=== PATIENT | male | born 2000 | race Caucasian/White ===

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

== ENCOUNTER → 2019-05-11 | Outpatient (CLI) | payer OTHER, BC ==
[~2019-05-11] MED LIST changes: -TRAZ-189 PO; +TRAZ-222 PO
[2019-05-11 15:58] LABS: BASOPHILS % (AUTO) 0 % (0-10); EOSINOPHILS # (AUTO) 0.2 10^3/uL (0.0-0.3); EOSINOPHILS % (AUTO) 2 % (0-10); HEMATOCRIT 47 % (40-54); HEMOGLOBIN 16.1 G/DL (13.3-17.7); LYMPHOCYTES # (AUTO) 2.1 X 10^3 (1.0-4.0); LYMPHOCYTES % (AUTO) 22 % (12-44); MEAN CORPUSCULAR HEMOGLOBIN 29 PG (25-34); MEAN CORPUSCULAR HGB CONC 34 G/DL (32-36); MEAN CORPUSCULAR VOLUME 85 FL (80-99); MEAN PLATELET VOLUME 11.1 FL (7.4-10.4); MONOCYTES # (AUTO) 0.7 X 10^3 (0.0-1.0); MONOCYTES % (AUTO) 8 % (0-12); NEUTROPHILS # (AUTO) 6.6 X 10^3 (1.8-7.8); NEUTROPHILS % (AUTO) 69 % (42-75); PLATELET COUNT 221 10^3/uL (130-400); RED CELL DISTRIBUTION WIDTH 12.9 % (10.0-14.5); WHITE BLOOD COUNT 9.7 10^3/uL (4.3-11.0)
[2019-05-11 16:20] LABS: URIC ACID 8.6 MG/DL (2.6-7.2)
[2019-05-11 16:37] LABS: ERYTHROCYTE SEDIMENTATION RATE 1 MM/HR (0-15)
[2019-05-11 16:40] LABS: FREE T4 (FREE THYROXINE) 0.89 NG/DL (0.70-1.48)
== END ==
LOC: LAB 15:38
PROVIDERS: ATTEND Family Medicine
DX: E53.8 Deficiency of other specified B group vitamins (principal); E55.9 Vitamin D deficiency, unspecified; M25.50 Pain in unspecified joint; R53.83 Other fatigue; R63.5 Abnormal weight gain
CPT/HCPCS: 36415; 82306; 82607; 84439; 84443; 84550; 85025; 85652

== ENCOUNTER 2019-06-24 19:09 | Emergency (ER) | payer OTHER, BC, MEDICAID ==
[~2019-06-24] VITALS: Ht 182 cm; Wt 131.9 kg
--- NOTE | 2019-06-24 19:39 | ED Psychosocial ---
General Chief Complaint: Suicidal Ideation Risk Stated Complaint: SUICIDAL THOUGHTS Nursing Triage Note: PATIENT WITH HISTORY OF SUICIDE ATTEMPTS HERE FOR CONTINUED SUICIDIAL IDEATION. TODAY HE STATES HE HAD A KNIFE TO HIS ABDOMEN. Source: patient Exam Limitations: no limitations History of Present Illness Date Seen by Provider: Jun 24, 2019 Time Seen by Provider: 19:37 Initial Comments To ER with reports of suicidal thoughts. Earlier today he held a knife against his abdomen but didn't actually injure himself. States that he's been feeling increasingly suicidal over the past few weeks. He lost a close friend to suicide about 3 years ago, he cannot identify any other factors that have made him more suicidal. He has never been inpatient hospitalized for mental health before feels as though he is to a point where he needs to be inpatient to get his medications adjusted. He arrives accompanied by his mother who is employed here as a nurse's aide and his father. Timing/Duration: constant Severity: moderate Associated Symptoms: suicidal ideation Allergies and Home Medications Allergies Uncoded Allergies: MODESTODADemi (Adverse Reaction, Severe, Behavioral out burst, 05/30/16) Home Medications Asenapine Maleate 10 Mg Tab.subl, 20 MG SL HS, (Reported) Cyclobenzaprine HCl 10 Mg Tablet, 10 MG PO Q8H PRN for SPASMS Prescribed by: ALEJANDRO BARBER on 10/22/162141 Dexmethylphenidate HCl 30 Mg Cpbp.50.50, 60 MG PO DAILY, (Reported) Hydrocodone Bit/Acetaminophen 1 Each Tablet, 1 EACH PO Q4H PRN for PAIN Prescribed by: ALEJANDRO BARBER on 10/22/162141 Sertraline HCl 50 Mg Tablet, 50 MG PO DAILY, (Reported) Trazodone HCl 50 Mg Tablet, 25 MG PO HS, (Reported) Patient Home Medication List Home Medication List Reviewed: Yes Review of Systems Constitutional: see HPI EENTM: see HPI Respiratory: no symptoms reported Cardiovascular: no symptoms reported Genitourinary: no symptoms reported Musculoskeletal: no symptoms reported Skin: no symptoms reported Psychiatric/Neurological: See HPI, Depressed, Emotional Problems Past Ppxyywk-Lgehxu-Cpvoyh Hx Patient Social History Alcohol Use: Denies Use Recreational Drug Use: No Smoking Status: Never a Smoker 2nd Hand Smoke Exposure: No Recent Foreign Travel: No Contact w/Someone Who Travel: No Recent Infectious Disease Expo: No Recent Hopitalizations: No Ebola Symptoms: Denies Symptoms Listed Immunizations Up To Date Tetanus Booster (TDap): Less than 5yrs PED Vaccines UTD: Yes Seasonal Allergies Seasonal Allergies: No Past Medical History Surgeries: Yes (T&A) Adenoidectomy, Tonsillectomy Respiratory: No Cardiac: Yes Hypertension Neurological: No Reproductive Disorders: No Genitourinary: No Gastrointestinal: No Musculoskeletal: Yes Arthritis, Gout Endocrine: No Cancer: No Psychosocial: Yes ([place]bergers) ADD/ADHD, Bipolar, Depression Integumentary: No Blood Disorders: No Family Medical History No Pertinent Family Hx Physical Exam Vital Signs - First Documented 06/24/19 06/25/19 19:26 00:06 Temp 36.1 Pulse 98 Resp 18 B/P (MAP) 125/82 Pulse Ox 96 O2 Delivery Room Air Capillary Refill : Height, Weight, BMI Height: 6'0" Weight: 220lbs. 0oz. 99.274099wl; 39.00 BMI Method:Stated General Appearance: WD/WN, no apparent distress HEENT: PERRL/EOMI, normal ENT inspection, pharyngeal erythema (minor, no exudate) Neck: non-tender, full range of motion, lymphadenopathy (L) Respiratory: no respiratory distress, no accessory muscle use Cardiovascular: regular rate, rhythm, no murmur Gastrointestinal: normal bowel sounds, non tender Extremities: normal range of motion, non-tender, normal inspection Neurologic/Psychiatric: alert, normal mood/affect, oriented x 3 Appearance/Memory: appropriate appearance, appropriate insight, neat, other (alert and oriented cooperative and pleasant) Behavior/Eye Contact: cooperative, good eye contact, normal speech Thoughts/Hallucinations: normal thought pattern, no apparent hallucination Skin: normal color, warm/dry Progress/Results/Core Measures Results/Orders Lab Results Laboratory Tests Test 06/24/19 19:40 06/24/19 19:43 06/24/19 20:33 Range/Units White Blood Count 21.1 H 4.3-11.0 10^3/uL Red Blood Count 5.32 4.35-5.85 10^6/uL Hemoglobin 15.7 13.3-17.7 G/DL Hematocrit 46 40-54 % Mean Corpuscular Volume 86 80-99 FL Mean Corpuscular Hemoglobin 30 25-34 PG Mean Corpuscular Hemoglobin Concent 34 32-36 G/DL Red Cell Distribution Width 12.7 10.0-14.5 % Platelet Count 220 130-400 10^3/uL Mean Platelet Volume 10.9 H 7.4-10.4 FL Neutrophils (%) (Auto) 80 H 42-75 % Lymphocytes (%) (Auto) 11 L 12-44 % Monocytes (%) (Auto) 9 0-12 % Eosinophils (%) (Auto) 0 0-10 % Basophils (%) (Auto) 0 0-10 % Neutrophils # (Auto) 16.9 H 1.8-7.8 X 10^3 Lymphocytes # (Auto) 2.3 1.0-4.0 X 10^3 Monocytes # (Auto) 1.9 H 0.0-1.0 X 10^3 Eosinophils # (Auto) 0.0 0.0-0.3 10^3/uL Basophils # (Auto) 0.0 0.0-0.1 10^3/uL Neutrophils % (Manual) 72 % Lymphocytes % (Manual) 14 % Monocytes % (Manual) 8 % Band Neutrophils 6 % Smudge Cells SLIGHT Blood Morphology Comment NORMAL Sodium Level 141 135-145 MMOL/L Potassium Level 3.6 3.6-5.0 MMOL/L Chloride Level 107 98-107 MMOL/L Carbon Dioxide Level 22 21-32 MMOL/L Anion Gap 12 5-14 MMOL/L Blood Urea Nitrogen 12 7-18 MG/DL Creatinine 1.04 0.60-1.30 MG/DL Estimat Glomerular Filtration Rate > 60 BUN/Creatinine Ratio 12 Glucose Level 96 70-105 MG/DL Calcium Level 9.5 8.5-10.1 MG/DL Corrected Calcium 9.3 8.5-10.1 MG/DL Total Bilirubin 1.3 H 0.1-1.0 MG/DL Aspartate Amino Transf (AST/SGOT) 19 5-34 U/L Alanine Aminotransferase (ALT/SGPT) 22 0-55 U/L Alkaline Phosphatase 75 40-136 U/L C-Reactive Protein High Sensitivity 8.99 H 0.00-0.50 MG/DL Total Protein 7.5 6.4-8.2 GM/DL Albumin 4.3 3.2-4.5 GM/DL Salicylates Level < 5.0 L 5.0-20.0 MG/DL Acetaminophen Level < 10 L 10-30 UG/ML Serum Alcohol < 10 <10 MG/DL Urine Color YELLOW Urine Clarity CLEAR Urine pH 7 5-9 Urine Specific [place] 1.010 L 1.016-1.022 Urine Protein 2+ H NEGATIVE Urine Glucose (UA) NEGATIVE NEGATIVE Urine Ketones 1+ H NEGATIVE Urine Nitrite NEGATIVE NEGATIVE Urine Bilirubin 1+ H NEGATIVE Urine Urobilinogen 8 H NORMAL MG/DL Urine Leukocyte Esterase 1+ H NEGATIVE Urine RBC (Auto) NEGATIVE NEGATIVE Urine RBC NONE /HPF Urine WBC 2-5 /HPF Urine Squamous Epithelial Cells 0-2 /HPF Urine Crystals NONE /LPF Urine Bacteria TRACE /HPF Urine Casts NONE /LPF Urine Mucus LARGE H /LPF Urine Culture Indicated NO Urine Opiates Screen NEGATIVE NEGATIVE Urine Oxycodone Screen NEGATIVE NEGATIVE Urine Methadone Screen NEGATIVE NEGATIVE Urine Propoxyphene Screen NEGATIVE NEGATIVE Urine Barbiturates Screen NEGATIVE NEGATIVE Ur Tricyclic Antidepressants Screen NEGATIVE NEGATIVE Urine Phencyclidine Screen NEGATIVE NEGATIVE Urine Amphetamines Screen NEGATIVE NEGATIVE Urine Methamphetamines Screen NEGATIVE NEGATIVE Urine Benzodiazepines Screen NEGATIVE NEGATIVE Urine Cocaine Screen NEGATIVE NEGATIVE Urine Cannabinoids Screen NEGATIVE NEGATIVE Group A Streptococcus Screen NEGATIVE NEGATIVE Micro Results Microbiology 06/24/19 Throat Culture - Preliminary, Resulted No Beta Strep isolated My Orders Orders - VICKY CAMPBELL APRN Cbc With Automated Diff (06/24/19 19:27) Comprehensive Metabolic Panel (06/24/19 19:27) Ua Culture If Indicated (06/24/19 19:27) Ekg Tracing (06/24/19 19:27) Acetaminophen (06/24/19 19:27) Alcohol (06/24/19 19:27) Salicylate (06/24/19 19:27) Drug Screen Stat (Urine) (06/24/19 19:27) Manual Differential (06/24/19 19:40) Chest Pa/Lat (2 View) (06/24/19 19:55) Rapid Strep A Screen (06/24/19 20:29) Alprazolam Tablet (Xanax Tablet) (06/24/19 20:45) Hs C Reactive Protein (06/24/19 22:12) Penicillin G Benzathine Inject (Bicillin (06/24/19 22:45) Medications Given in ED Vital Signs/I&O Diagnostic Imaging Diagonstic Imaging: Xray Plain Films/CT/US/NM/MRI: chest Comments NAME: CEDRICSAGE MED REC#: [id number] PT STATUS: REG ER : 2000 PHYSICIAN: VICKY CAMPBELL APRN ADMIT DATE: 06/24/19/ER Draft Date of Exam:06/24/19 CHEST PA/LAT (2 VIEW) INDICATION: Suicidal ideation. FINDINGS: PA and lateral views. The lungs are well-aerated and clear. The heart is not enlarged. There is no hilar adenopathy. No pneumothorax or pleural effusion. No bony abnormalities. IMPRESSION: Normal PA and lateral chest. Dictated on workstation # [id number] Dict: 06/24/192011 Trans: 06/24/192019 COUNT INCLUDES THE [facility] [id number] Interpreted by: MARINA TIERNEY MD Electronically signed by: Departure Communication (Admissions) 2027-he does have leukocytosis noted on cbc. This is an incidental finding, when asked directly about any infectious symptoms he does report that he's had a productive cough and sore throat for a few days. Denies fevers or chills. He denies any abdominal pain nausea vomiting or dysuria. He denies any recent steroid use. 2048-Spoke with [facility] behavioral health nurse in [place], Dr. Suero has reviewed the labs and declines admission at this time based on leukocytosis. 2199-I've spoken with Dr. Cheng, she agrees that we could admit the patient here observation but this would not warrant antibiotics as he is afebrile and symp toms are minimal. From my standpoint he is medically clear for psychiatric admission, needs repeat CBC in the upcoming week.. 2250- Dr. Duarte from the [facility] has accepted the patient. This addresses [address] [place] [id number]. Because of leukocytosis sore throat cough I will give a one-time injection of Bicillin LA 1.2 million units here. Impression Primary Impression: Suicidal ideation Additional Impressions: Leukocytosis URI (upper respiratory infection) Disposition: 65 XFER TO PSYCH HOSP/UNIT Condition: Stable Departure-Patient Inst. Referrals: RUTHIE LEOS DO (PCP/Family) Primary Care Physician VICKY CAMPBELL APRN Jun 24, 2019 19:39
[2019-06-24 19:47] LABS: BASOPHILS % (AUTO) 0 % (0-10); EOSINOPHILS % (AUTO) 0 % (0-10); HEMATOCRIT 46 % (40-54); HEMOGLOBIN 15.7 G/DL (13.3-17.7); LYMPHOCYTES # (AUTO) 2.3 X 10^3 (1.0-4.0); LYMPHOCYTES % (AUTO) 11 % (12-44); MEAN CORPUSCULAR HEMOGLOBIN 30 PG (25-34); MEAN CORPUSCULAR HGB CONC 34 G/DL (32-36); MEAN CORPUSCULAR VOLUME 86 FL (80-99); MEAN PLATELET VOLUME 10.9 FL (7.4-10.4); MONOCYTES # (AUTO) 1.9 X 10^3 (0.0-1.0); MONOCYTES % (AUTO) 9 % (0-12); NEUTROPHILS # (AUTO) 16.9 X 10^3 (1.8-7.8); NEUTROPHILS % (AUTO) 80 % (42-75); PLATELET COUNT 220 10^3/uL (130-400); RED CELL DISTRIBUTION WIDTH 12.7 % (10.0-14.5); WHITE BLOOD COUNT 21.1 10^3/uL (4.3-11.0)
[2019-06-24 19:52] LABS: BILIRUBIN,URINE 1+ (NEGATIVE); CLARITY,URINE CLEAR; COLOR,URINE YELLOW; GLUCOSE, URINE (UA) NEGATIVE (NEGATIVE); KETONES,URINE 1+ (NEGATIVE); LEUKOCYTE ESTERASE ,URINE 1+ (NEGATIVE); NITRITE,URINE NEGATIVE (NEGATIVE); PH,URINE 7 (5-9); PROTEIN,URINE 2+ (NEGATIVE)
[2019-06-24 20:06] LABS: ALANINE AMINOTRANSFERASE 22 U/L (0-55); ALBUMIN 4.3 GM/DL (3.2-4.5); ALKALINE PHOSPHATASE 75 U/L (40-136); BILIRUBIN,TOTAL 1.3 MG/DL (0.1-1.0); BUN/CREATININE RATIO 12; CALCIUM 9.5 MG/DL (8.5-10.1); CARBON DIOXIDE 22 MMOL/L (21-32); CHLORIDE 107 MMOL/L (98-107); CREATININE SERUM 1.04 MG/DL (0.60-1.30); GFR ESTIMATED > 60; GLUCOSE 96 MG/DL (70-105); POTASSIUM 3.6 MMOL/L (3.6-5.0); SODIUM 141 MMOL/L (135-145); TOTAL PROTEIN 7.5 GM/DL (6.4-8.2)
[2019-06-24 20:08] LABS: BAND NEUTROPHILS 6 %; LYMPHOCYTES % (MANUAL) 14 %; MONOCYTES % (MANUAL) 8 %; NEUTROPHILS % (MANUAL) 72 %
[2019-06-24 20:09] LABS: RBC MORPH NORMAL; SMUDGE CELLS SLIGHT
[2019-06-24 20:10] LABS: AMPHETAMINE SCREEN, URINE NEGATIVE (NEGATIVE); BARBITURATE SCREEN URINE NEGATIVE (NEGATIVE); BENZODIAZEPINES SCREEN URINE NEGATIVE (NEGATIVE); CANNABINOID SCREEN, URINE NEGATIVE (NEGATIVE); COCAINE SCREEN URINE NEGATIVE (NEGATIVE); METHADONE STAT NEGATIVE (NEGATIVE); METHAMPHETAMINE SCREEN URINE S NEGATIVE (NEGATIVE); OPIATE SCREEN URINE NEGATIVE (NEGATIVE); OXYCODONE STAT NEGATIVE (NEGATIVE); PROPOXYPHENE STAT NEGATIVE (NEGATIVE); TRICYCLIC ANTIDEPRESSANTS SCRE NEGATIVE (NEGATIVE)
[2019-06-24 20:12] LABS: BACTERIA,URINE TRACE /HPF; SQUAMOUS EPITHELIAL CELL,UR 0-2 /HPF
[2019-06-24 20:16] LABS: ACETAMINOPHEN < 10 UG/ML (10-30); SALICYLATE < 5.0 MG/DL (5.0-20.0)
--- NOTE | 2019-06-24 20:21 | Diagnostic Imaging Report ---
INDICATION: Suicidal ideation. FINDINGS: PA and lateral views. The lungs are well-aerated and clear. The heart is not enlarged. There is no hilar adenopathy. No pneumothorax or pleural effusion. No bony abnormalities. IMPRESSION: Normal PA and lateral chest. Dictated by: Dictated on workstation # [id number]
[2019-06-24] MEDS ORDERED: ALPRAZolam 0.5 MG (XANAX) TAB PO SCH (20:45)
--- NOTE | 2019-06-24 21:51 | NUR ---
meal tray provided.
[2019-06-24] MEDS ORDERED: PEN G BENZ (BICILLIN LA) 1.2 M UN/2 ML SYR IM ONE (22:45)
--- NOTE | 2019-06-24 23:00 | NUR ---
report given to zac foster, bed assignment recieved. sheila hernandez called for transport.
== END 2019-06-25 00:15 ==
LOC: EDUNIT# 19:09 → ER 19:10
DX: R45.851 Suicidal ideations (principal); D72.829 Elevated white blood cell count, unspecified; J06.9 Acute upper respiratory infection, unspecified; I10 Essential (primary) hypertension; F90.9 Attention-deficit hyperactivity disorder, unspecified type; F31.9 Bipolar disorder, unspecified; M10.9 Gout, unspecified; Z88.8 Allergy status to other drugs, medicaments and biological substances; Z90.89 Acquired absence of other organs
CPT/HCPCS: 36415; 71046; 80053; 80306; 80320; 80329; 81000; 85007; 85027; 86141; 87430; 93005; 96372

== ENCOUNTER → 2019-07-21 | Outpatient (CLI) | payer OTHER, BC, MEDICAID ==
[2019-07-21 16:16] LABS: BASOPHILS % (AUTO) 0 % (0-10); EOSINOPHILS # (AUTO) 0.2 10^3/uL (0.0-0.3); EOSINOPHILS % (AUTO) 1 % (0-10); HEMATOCRIT 47 % (40-54); HEMOGLOBIN 16.2 G/DL (13.3-17.7); LYMPHOCYTES # (AUTO) 2.8 X 10^3 (1.0-4.0); LYMPHOCYTES % (AUTO) 21 % (12-44); MEAN CORPUSCULAR HEMOGLOBIN 30 PG (25-34); MEAN CORPUSCULAR HGB CONC 34 G/DL (32-36); MEAN CORPUSCULAR VOLUME 86 FL (80-99); MEAN PLATELET VOLUME 11.3 FL (7.4-10.4); MONOCYTES # (AUTO) 0.9 X 10^3 (0.0-1.0); MONOCYTES % (AUTO) 7 % (0-12); NEUTROPHILS # (AUTO) 9.5 X 10^3 (1.8-7.8); NEUTROPHILS % (AUTO) 71 % (42-75); PLATELET COUNT 201 10^3/uL (130-400); RED CELL DISTRIBUTION WIDTH 12.5 % (10.0-14.5); WHITE BLOOD COUNT 13.4 10^3/uL (4.3-11.0)
== END ==
LOC: LAB 16:06
PROVIDERS: ATTEND Family Medicine
DX: D72.829 Elevated white blood cell count, unspecified (principal)
CPT/HCPCS: 36415; 85025

== ENCOUNTER 2019-08-18 13:36 | Outpatient (RCR) | payer OTHER, BC, MEDICAID ==
[~2019-08-18 13:36] MED LIST changes: -TRAZ-222 PO; +TRZ50T PO
[2019-08-18 13:46] LABS: BASOPHILS % (AUTO) 0 % (0-10); EOSINOPHILS # (AUTO) 0.1 10^3/uL (0.0-0.3); EOSINOPHILS % (AUTO) 1 % (0-10); HEMATOCRIT 48 % (40-54); HEMOGLOBIN 16.5 G/DL (13.3-17.7); LYMPHOCYTES # (AUTO) 2.4 X 10^3 (1.0-4.0); LYMPHOCYTES % (AUTO) 28 % (12-44); MEAN CORPUSCULAR HEMOGLOBIN 29 PG (25-34); MEAN CORPUSCULAR HGB CONC 34 G/DL (32-36); MEAN CORPUSCULAR VOLUME 85 FL (80-99); MEAN PLATELET VOLUME 11.2 FL (7.4-10.4); MONOCYTES # (AUTO) 0.7 X 10^3 (0.0-1.0); MONOCYTES % (AUTO) 8 % (0-12); NEUTROPHILS # (AUTO) 5.2 X 10^3 (1.8-7.8); NEUTROPHILS % (AUTO) 62 % (42-75); PLATELET COUNT 226 10^3/uL (130-400); RED CELL DISTRIBUTION WIDTH 12.3 % (10.0-14.5); WHITE BLOOD COUNT 8.3 10^3/uL (4.3-11.0)
== END 2019-11-16 | disposition home or self-care (01) ==
LOC: LAB 13:36
PROVIDERS: ATTEND Family Medicine
DX: D72.829 Elevated white blood cell count, unspecified (principal)
CPT/HCPCS: 36415; 85025

== ENCOUNTER → 2019-12-20 | Outpatient (CLI) | payer OTHER, MEDICAID ==
[2019-12-20 09:51] LABS: ALBUMIN 4.5 GM/DL (3.2-4.5); CHLORIDE 108 MMOL/L (98-107); SODIUM 141 MMOL/L (135-145)
[2019-12-20 09:53] LABS: CALCIUM 9.6 MG/DL (8.5-10.1); TRIGLYCERIDES 131 MG/DL (<150); VLDL CHOLESTEROL 26 MG/DL (5-40)
[2019-12-20 09:54] LABS: GLUCOSE 91 MG/DL (70-105); TOTAL PROTEIN 7.9 GM/DL (6.4-8.2)
[2019-12-20 09:55] LABS: CARBON DIOXIDE 22 MMOL/L (21-32)
[2019-12-20 09:56] LABS: BILIRUBIN,TOTAL 0.7 MG/DL (0.1-1.0)
[2019-12-20 09:57] LABS: ALKALINE PHOSPHATASE 76 U/L (40-136); CREATININE SERUM 1.09 MG/DL (0.60-1.30); GFR ESTIMATED > 60
[2019-12-20 09:58] LABS: CHOLESTEROL 145 MG/DL (< 200)
[2019-12-20 09:59] LABS: BUN/CREATININE RATIO 17
[2019-12-20 10:00] LABS: HDL CHOLESTEROL 29 MG/DL (40-60)
[2019-12-20 10:01] LABS: ALANINE AMINOTRANSFERASE 45 U/L (0-55); URIC ACID 8.4 MG/DL (2.6-7.2)
== END ==
LOC: LAB 09:28
PROVIDERS: ATTEND Family Medicine
DX: Z00.01 Encounter for general adult medical examination with abnormal findings (principal); I10 Essential (primary) hypertension; G47.00 Insomnia, unspecified
CPT/HCPCS: 36415; 80053; 80061; 82306; 84550

== ENCOUNTER → 2020-07-30 | Outpatient (CLI) | payer OTHER, MEDICAID ==
[2020-07-30 09:26] LABS: BASOPHILS % (AUTO) 0 % (0-10); EOSINOPHILS # (AUTO) 0.2 10^3/uL (0.0-0.3); EOSINOPHILS % (AUTO) 1 % (0-10); HEMATOCRIT 46 % (40-54); HEMOGLOBIN 15.1 g/dL (13.3-17.7); LYMPHOCYTES # (AUTO) 2.2 10^3/uL (1.0-4.0); LYMPHOCYTES % (AUTO) 20 % (12-44); MEAN CORPUSCULAR HEMOGLOBIN 28 pg (25-34); MEAN CORPUSCULAR HGB CONC 33 g/dL (32-36); MEAN CORPUSCULAR VOLUME 86 fL (80-99); MEAN PLATELET VOLUME 11.1 fL (9.0-12.2); MONOCYTES # (AUTO) 0.7 10^3/uL (0.0-1.0); MONOCYTES % (AUTO) 7 % (0-12); NEUTROPHILS # (AUTO) 7.7 10^3/uL (1.8-7.8); NEUTROPHILS % (AUTO) 71 % (42-75); PLATELET COUNT 192 10^3/uL (130-400); WHITE BLOOD COUNT 10.8 10^3/uL (4.3-11.0)
[2020-07-30 09:53] LABS: ALANINE AMINOTRANSFERASE 49 U/L (0-55); ALBUMIN 4.3 GM/DL (3.2-4.5); ALKALINE PHOSPHATASE 87 U/L (40-136); BILIRUBIN,TOTAL 0.4 MG/DL (0.1-1.0); BUN/CREATININE RATIO 15; CALCIUM 8.9 MG/DL (8.5-10.1); CARBON DIOXIDE 24 MMOL/L (21-32); CHLORIDE 109 MMOL/L (98-107); CHOLESTEROL 188 MG/DL (< 200); CREATININE SERUM 0.92 MG/DL (0.60-1.30); GFR ESTIMATED > 60; GLUCOSE 116 MG/DL (70-105); HDL CHOLESTEROL 29 MG/DL (40-60); SODIUM 141 MMOL/L (135-145); TOTAL PROTEIN 7.4 GM/DL (6.4-8.2); TRIGLYCERIDES 280 MG/DL (<150); URIC ACID 5.6 MG/DL (2.6-7.2); VLDL CHOLESTEROL 56 MG/DL (5-40)
== END ==
LOC: LAB 08:45
PROVIDERS: ATTEND Family Medicine
DX: E55.9 Vitamin D deficiency, unspecified (principal); I10 Essential (primary) hypertension; E79.0 Hyperuricemia without signs of inflammatory arthritis and tophaceous disease
CPT/HCPCS: 36415; 80053; 80061; 82306; 84550; 85025

== ENCOUNTER → 2020-08-14 | Outpatient (CLI) | payer OTHER, MEDICAID ==
--- NOTE | 2020-08-14 10:20 | Diagnostic Imaging Report ---
PROCEDURE: US Scrotum. TECHNIQUE: Multiple real-time grayscale images were obtained over the scrotum in various projections bilaterally. INDICATION: Testicular swelling There are no prior studies available for comparison. Both testicles were identified. The right testicle measures 4.1 x 3.0 x 3.1 cm. The left testicles is estimated to be 5.2 x 2.9 x 3.4 cm. There is no evidence for a solid testicular mass and there is no sign of torsion. However there is a small 4 x 4.x 4 mm benign-appearing cyst in the inferior pole of the right testicle. There is no sign of epididymitis. There are bilateral moderate-sized hydroceles. IMPRESSION: 1. There is no evidence for a solid to cystic mass or for torsion. 2. There is a small benign-appearing cyst in the inferior pole of the right kidney. 3. There is no evidence for epididymitis. 4. There are bilateral moderate-sized hydroceles. Dictated by: Dictated on workstation # [id number]
== END ==
LOC: RAD 09:15
PROVIDERS: ATTEND Family Medicine
DX: N28.1 Cyst of kidney, acquired (principal); N43.3 Hydrocele, unspecified
CPT/HCPCS: 76870

== ENCOUNTER → 2021-03-20 | Outpatient (CLI) | payer OTHER, MEDICAID | LOC: CARD 13:50 | PROVIDERS: ATTEND Family Medicine | DX: I11.9 Hypertensive heart disease without heart failure (principal) | CPT/HCPCS: 93306 ==

== ENCOUNTER → 2021-04-18 | Outpatient (CLI) | payer OTHER, BC, MEDICAID | LOC: LABNPT 06:29 | PROVIDERS: ATTEND Family Medicine | DX: Z20.822 Contact with and (suspected) exposure to COVID-19 (principal) | CPT/HCPCS: 87635 ==

== ENCOUNTER → 2021-04-22 | Outpatient (CLI) | payer OTHER, MEDICAID | LOC: SLEEP 19:05 | PROVIDERS: ATTEND Family Medicine | DX: G47.33 Obstructive sleep apnea (adult) (pediatric) (principal); G47.10 Hypersomnia, unspecified; I10 Essential (primary) hypertension | CPT/HCPCS: 95810 ==

== ENCOUNTER → 2021-05-16 | Outpatient (CLI) | payer OTHER, MEDICAID | LOC: LABNPT 06:14 | PROVIDERS: ATTEND Family Medicine | DX: Z20.822 Contact with and (suspected) exposure to COVID-19 (principal) | CPT/HCPCS: 87635 ==

== ENCOUNTER 2021-05-18 20:54 | Outpatient (CLI) | payer OTHER, MEDICAID | END 2021-05-19 06:00 | disposition home or self-care (01) | LOC: SLEEP 20:54 | PROVIDERS: ATTEND Family Medicine | DX: G47.33 Obstructive sleep apnea (adult) (pediatric) (principal); G47.10 Hypersomnia, unspecified; I10 Essential (primary) hypertension; F90.9 Attention-deficit hyperactivity disorder, unspecified type; E88.81 Metabolic syndrome and other insulin resistance | CPT/HCPCS: 95811 ==

== ENCOUNTER 2022-01-16 07:32 | Outpatient (CLI) | payer OTHER ==
[~2022-01-16] VITALS: Ht 182.9 cm; Wt 140.9 kg
[~2022-01-16 07:32] MED LIST changes: +CYCL10TA25 PO; -CYCL10TA9 PO
[2022-01-20] MEDS ORDERED: DEXM25CP PO (08:52)
[2022-01-20] MEDS ORDERED: ALLO100T PO (09:06)
[2022-01-20] MEDS ORDERED: MV-M1TAB20 PO (09:06)
[2022-01-20] MEDS ORDERED: OMEP40CA6 PO (09:06)
[2022-01-20] MEDS ORDERED: MTP100TCR PO (09:06)
== END 2022-01-20 09:46 | disposition home or self-care (01) ==
LOC: PREOP 07:32
PROVIDERS: ATTEND Surgery
DX: Z01.818 Encounter for other preprocedural examination (principal)

== ENCOUNTER 2022-01-23 12:10 | Day surgery (SDC) | payer OTHER ==
--- NOTE | 2022-01-14 10:36 | HISTORY AND PHYSICAL ---
DATE OF SERVICE: DATE OF PROCEDURE: 01/23/2022. ATTENDING PRIMARY CARE PHYSICIAN: Sophia Shelley DO HISTORY OF PRESENT ILLNESS: The patient is a 21-year-old male with morbid obesity, who is interested in the laparoscopic gastric sleeve resection and meets the medical criteria for bariatric surgery. He reports that he began to gain the majority of his adult weight 4 to 5 years ago after he graduated from high school. He reports that he believes he has gained approximately 100 pounds since that time. He reports he has tried diets in the past such as keto diet with no success. He reports he has not tried any specific exercises in the past for weight loss. He reports that he has tried the medication, Saxenda for 3 to 4 months and lost approximately 20 pounds; however, stopped the medication due to nausea. His medical comorbidities related to obesity include obstructive sleep apnea, hypertension, gastroesophageal reflux disease, depression, and gout. PAST MEDICAL HISTORY: Obstructive sleep apnea, hypertension, gastroesophageal reflux disease, gout, bipolar, depression. PAST SURGICAL HISTORY: Tonsils and adenoidectomy in 2000. ALLERGIES: GEODON. MEDICATIONS: Allopurinol 100 mg, asenapine 10 mg, metoprolol ER 100 mg, omeprazole 40 mg, sertraline 100 mg, vitamin D3. SOCIAL HISTORY: Negative for tobacco smoke. Rare for alcohol. FAMILY HISTORY: Maternal grandmother, diabetes. VITAL SIGNS: Blood pressure is 154/82, weight 369 pounds at 6 feet 2 inches with a body mass index of 50.0. REVIEW OF SYSTEMS: This is a well-nourished, obese male in no acute distress. He is not experiencing any shortness of breath or difficulty breathing. No chest pain, palpitations or diaphoresis. No nausea, vomiting or abdominal pain. No diarrhea or constipation. No red blood per rectum. No dark tarry stools. No fever or chills. No recent inadvertent weight loss. All other review of systems negative. PHYSICAL EXAMINATION: CHEST: Clear. Good breath sounds bilaterally. HEART: Regular, no murmurs. EXTREMITIES: No lower extremity edema. Negative Homans sign. HEENT: No scleral icterus. NECK: No cervical lymphadenopathy. ABDOMEN: Soft, nontender, nondistended. SKIN: Warm, dry and pink. NEUROLOGIC: Awake, alert and oriented x3. ASSESSMENT AND PLAN: A 21-year-old male with morbid obesity, who is interested in the laparoscopic gastric sleeve resection and meets the medical criteria for bariatric surgery. His medical comorbidities related to obesity including obstructive sleep apnea, hypertension, gastroesophageal reflux disease, depression and gout. At this time, we will proceed with the necessary tests and evaluations including upper GI contrast study, nutrition and psychology consult and clearance from his primary care physician. At this time, we can forego the overnight oximetry study due to patient already being diagnosed with obstructive sleep apnea and having a CPAP. We will also proceed with physician monitored dieting and weight loss was explained to him that. We want him to lose some weight before the surgery. We will also have him proceed with a high protein, low-carb diet with little to no sugars and some form of regular scheduled exercise regimen. The risks and benefits of the procedure as well as the procedure and home care instructions were explained to the patient. It was also discussed with him again in depth about preoperative as well as postoperative diet and exercise. Once we have obtained all the necessary tests and evaluations, we will then proceed with scheduling him for the laparoscopic gastric sleeve resection. Job ID: [id number] DocumentID: [id number] Dictated Date: 01/14/2022 09:29:23 Abrasive Grader Date: 01/14/2022 10:35:41 Dictated By: XAVIER MENESES APRN
[~2022-01-23] VITALS: Ht 188 cm; Wt 167.4 kg
[2022-01-23] VITALS (12 sets, daily range): BP systolic 107–135; BP diastolic 56–82
[~2022-01-23 12:10] MED LIST changes: +ALLO100T PO; +DEXM25CP PO; +MTP100TCR PO; +MV-M1TAB20 PO; +OMEP40CA6 PO
--- NOTE | 2022-01-23 12:35 | Progress Note-Pre Operative ---
Pre-Operative Progress Note H&P Reviewed The H&P was reviewed, patient examined and no changes noted. Date Seen by Provider: January 23, 2022 Time Seen by Provider: 12:00 Date H&P Reviewed: January 23, 2022 Time H&P Reviewed: 12:00 Pre-Operative Diagnosis: morbid obesity, mikhail JESÚS GUTIERREZ MD January 23, 2022 12:35
--- NOTE | 2022-01-23 12:40 | Discharge Inst-Surgical ---
D/C Lap Instructions-MATT Follow Up Appt in 2 weeks Activity as tolerated No driving for 24 hours No driving while on pain medications Incentive Spirometry use every 2 hours while awake Phase 1 clear liquid diet next 2 weeks. Symptoms to Report: Fever over 101 degree F, Nausea/Vomiting Infection Signs and Symptoms to report: Increased redness, Foul odor of wound, Increased drainage Bathing instructions: May shower Operative Area Clean/Dry; Keep incision clean/dry If any problems/questions: Contact your physician or go to Emergency Room JESÚS GUTIERREZ MD January 23, 2022 12:40
[2022-01-23] MEDS ORDERED: diphenhydrAMINE 50 MG/ML INJ (BENADRYL) IV PRN (12:45)
[2022-01-23] MEDS ORDERED: NALOXONE 0.4 MG/ML 1 ML (NARCAN) VIAL IV PRN (12:45)
[2022-01-23] MEDS ORDERED: ONDANSETRON 4 MG/2 ML (SDV) Z0FRAN IV PRN (12:45)
[2022-01-23] MEDS ORDERED: NS IV 1000 ML 1,000 ML IV SCH (12:45)
[2022-01-23] MEDS ORDERED: METOCLOPRAMIDE INJ 10 MG/2 ML (REGLAN) IV PRN (12:45)
[2022-01-23] MEDS ORDERED: fentaNYL INJ 1,000 MCG in NS (IVPB) 80 ML IV SCH (12:45)
[2022-01-23] MEDS ORDERED: diphenhydrAMINE 50 MG/ML INJ (BENADRYL) IVP PRN (12:45)
[2022-01-23] MEDS ORDERED: LACTATED RINGERS 1,000 ML IV SCH (13:45)
[2022-01-23] MEDS ORDERED: ceFAZolin 2 GM IV Premixed 50 ML IV ONE (13:45)
[2022-01-23] MEDS ORDERED: BUP/EPI 0.5% 1:200,000 (SENSORCAINE) 30 ML VIAL ONE (13:57)
[2022-01-23] MEDS ORDERED: RT-ALBUTEROL SULF 2.5 MG/3 ML PRE-MIX VIAL INH SCH ×2 (14:00→22:00)
[2022-01-23] MEDS ORDERED: ceFAZolin 2 GM IV Premixed 50 ML ONE (14:07)
[2022-01-23] MEDS ORDERED: proPOfol 200 MG/20 ML (DIPRIVAN) VIAL IV ONE (14:21)
[2022-01-23] MEDS ORDERED: SEVOFLURANE (ULTANE) 15 ML INHAL SOLN ONE ×2 (14:21→16:23)
[2022-01-23] MEDS ORDERED: LIDOCAINE PF 2% 5 ML (XYLOCAINE) VIAL ONE (14:21)
[2022-01-23] MEDS ORDERED: ONDANSETRON 4 MG/2 ML (SDV) Z0FRAN ONE (14:21)
[2022-01-23] MEDS ORDERED: fentaNYL INJ 100 MCG/2 ML AMP ONE (14:22)
[2022-01-23] MEDS ORDERED: MIDAZOLAM 2 MG/2 ML (VERSED) VIAL ONE (14:22)
[2022-01-23] MEDS ORDERED: ROCURONIUM 50 MG/5 ML (ZEMURON) VIAL IV ONE ×2 (14:22→15:28)
[2022-01-23] MEDS: LACTATED RINGERS 1,000 ML IV PRN (15:30)
[2022-01-23] MEDS ORDERED: GLYCOPYRROLATE 0.2 MG/ML (ROBINUL) 2 ML VIAL ONE ×2 (15:39→16:21)
[2022-01-23] MEDS ORDERED: NEOSTIGMINE 3 MG/3 ML VIAL ONE (16:21)
--- NOTE | 2022-01-23 16:34 | Progress Note-Post Operative ---
Post-Operative Progess Note Surgeon (s)/Nursing Administrator (s) Surgeon JESÚS GUTIERREZ MD Nursing Administrator: tomeka lima TECHNICAL DOCUMENTATION SPECIALIST Pre-Operative Diagnosis morbid obesity, mikhail Post-Operative Diagnosis same Procedure & Operative Findings Date of Procedure 01/23/22 Procedure Performed/Findings laparoscopic cholecystectomy Anesthesia Type get Estimated Blood Loss Estimated blood loss (mL): minimal Specimens/Packing Specimens Removed stomach JESÚS GUTIERREZ MD January 23, 2022 16:34
[2022-01-23] MEDS ORDERED: HYDROmorphone 2 MG/ML VIAL (DILAUDID) ONE (16:43)
[2022-01-23] MEDS ORDERED: ONDANSETRON 4 MG/2 ML (SDV) Z0FRAN IVP PRN (17:00)
[2022-01-23] MEDS ORDERED: morphine INJ 10 MG/ML 1ML (SYR OR VIAL) IVP ONE (17:00)
[2022-01-23] MEDS ORDERED: MEPERIDINE (DEMEROL) INJ 50 MG/ML IVP ONE (17:00)
[2022-01-23] MEDS ORDERED: HYDROmorphone 2 MG/ML VIAL (DILAUDID) IV ONE (17:00)
[2022-01-23] MEDS ORDERED: PROMETHAZINE INJ 25 MG/ML (PHENERGAN) AMP IVP ONE (17:00)
--- NOTE | 2022-01-23 17:08 | Anesthesia-General Post-Op ---
General Patient Condition Mental Status/LOC: Same as Preop Cardiovascular: Satisfactory Nausea/Vomiting: Absent Respiratory: Satisfactory Pain: Controlled Complications: Absent Post Op Complications Complications None Follow Up Care/Instructions Patient Instructions None needed. Anesthesia/Patient Condition Patient Condition Patient is doing well, no complaints, stable vital signs, no apparent adverse anesthesia problems. No complications reported per nursing. KINGSLEY KOENIG CRNA January 23, 2022 17:08
[2022-01-23] MEDS: 1/2 NS W/KCL 20 MEQ/L 1,000 ML IV SCH ×2 (18:29→18:41)
[2022-01-23] MEDS: metroNIDAZOLE 500MG/100ML IVPB 100 ML IV SCH (18:30)
[2022-01-23] MEDS: METOCLOPRAMIDE INJ 10 MG/2 ML (REGLAN) IVP SCH ×2 (18:32→23:21)
[2022-01-23] MEDS: ONDANSETRON 4 MG/2 ML (SDV) Z0FRAN IVP SCH ×2 (18:34→23:21)
[2022-01-23] MEDS: ENOXAPARIN 40 MG/0.4 ML (LOVENOX) SYR SC SCH (21:41)
[2022-01-23] MEDS: ceFAZolin 2 GM IV Premixed 50 ML IV SCH (21:41)
--- NOTE | 2022-01-24 00:37 | OPERATIVE REPORT ---
DATE OF SERVICE: 01/23/2022 ATTENDING PRIMARY CARE PHYSICIAN: Sophia Shelley DO PREOPERATIVE DIAGNOSES: Morbid obesity, sleep apnea. POSTOPERATIVE DIAGNOSES: Morbid obesity, sleep apnea. PROCEDURE: Laparoscopic gastric sleeve resection. SURGEON: Jesús uGtierrez MD COMPUTER ENGINEERING TECHNICIAN: Hoang Johnson APRN. ANESTHESIA: General endotracheal. ESTIMATED BLOOD LOSS: Minimal. FINDINGS: No hepatomegaly, no hiatal hernia. DISPOSITION: The patient tolerated the procedure well. INDICATIONS: The patient is a 21-year-old male who is in our surgical weight loss program for the gastric sleeve resection and meets the medical criteria for bariatric surgery. He began to gain the majority of his adult weight 5 years ago after he graduated from high school. He states that he began working and gained approximately 100 pounds since that time. He has tried a number of diet and exercise attempts with no success. He has tried low calorie as well as ketogenic diet with no success. He has tried some exercise programs including walking, treadmill as well as resistance weight training again with no success. He has also tried medications including Saxenda and states that he was able to lose approximately 20 pounds; however, stopped the medication due to nausea. His medical comorbidities related to obesity include obstructive sleep apnea, hypertension, gastroesophageal reflux disease, depression and gout. DESCRIPTION OF PROCEDURE: The patient was brought to the operating room, laid supine on the table. After adequate IV pain and sedative medications and general endotracheal intubation, the abdomen was prepped and draped in standard surgical fashion. A 0.5% Marcaine with epinephrine was used to anesthetize overlying skin of the left upper abdominal quadrant and transverse skin incision made using a 15 blade. An 0 silk suture was applied to the medial aspect of the incision for retraction and a Veress needle inserted with a low opening pressure of 0 mmHg and the abdomen was then insufflated to 15 mmHg pressure. The Veress needle removed, and a 5 mm XL trocar placed followed by a 5 mm 45-degree angle laparoscope visualizing the peritoneal cavity. A 4-quadrant abdominal exploration was performed. There was mild hepatomegaly. The gallbladder appeared normal. No hiatal hernia identified. Under direct visualization, we then proceeded to place a midabdominal left to midline 10 mm port after the skin and peritoneal lining were anesthetized using 0.5% Marcaine with epinephrine and a transverse skin incision made using a 15 blade. In a similar fashion, a midabdominal right of midline 15 mm port was placed followed by a right upper abdominal quadrant 5 mm port. The epigastric region was then anesthetized and a vertical skin incision made using a 15 blade. A trochar to a 5 mm port was then used to create an opening through the abdominal wall layers and through this opening, a medium sized Nathansen liver retractor was placed and the left lobe of the liver was then retracted anteriorly and superiorly. The patient was then placed in steep reverse Trendelenburg position. We then measured 6 cm from the pylorus along the greater curvature and marked this with a marking pen. The gastrocolic ligament next to the stomach was then opened entering the lesser sac using the Sonicision. We then proceeded with inferior dissection until we were approximately 2 cm below our marking. We then proceeded cephalad taking down the short gastric vessels as well as the angle of His connective tissue fibers. We proceeded with posterior dissection until the left iveth of the diaphragm was identified. A 36-Maltese ViSiGi was then placed under direct visualization and guided into the pylorus. We then used this as a staple line guide and proceeded with our first stapler with a 45 mm black load 2 cm below our marking. We then proceeded with 360 mm black loads followed by two 60 mm purple loads leaving 2 cm at the gastroesophageal junction and completing our gastric sleeve resection with visualization of good hemostasis. The staple line corners were then clipped with 5 mm clips. A leak test was then performed, and air insufflated to 30 mmHg pressure with no leak identified. The ViSiGi removed and Tisseel fibrin glue was placed onto the staple line and the omentum placed over the staple line. The stomach was removed through the 15 mm port site. The fascia and peritoneum to the 10 and 15 mm port sites were then closed under direct visualization using a Selvin-Francesco device and 0 Vicryl suture. The abdomen was desufflated and remaining ports removed. All skin incisions were closed using 4-0 Monocryl running subcuticular sutures. Wounds were then cleaned and covered with Dermabond. The patient tolerated the procedure well. We will admit him 23-hour observation and proceed with IV fluids. We will also proceed with DVT prophylaxis with early ambulation, calf SCDs as well as Lovenox injections. He can have ice chips today and then tomorrow morning, we will start him on a phase 1 clear liquid diet with 30 mL every 30 minutes and if he tolerates this, then increase it to 60 mL every 30 minutes and once he is able to tolerate this for 2 consecutive hours, has good pain control with oral pain medication and is ambulating well, we will discharge him home where he will be instructed to continue with a phase 1 clear liquid diet for the next 2 weeks. Job ID: [id number] DocumentID: [id number] Dictated Date: 01/23/2022 16:42:48 Dramatic Reader Date: 01/24/2022 00:37:29 Dictated By: JESÚS GUTIERREZ MD [facility]
[2022-01-24] MEDS: 1/2 NS W/KCL 20 MEQ/L 1,000 ML IV SCH ×2 (01:58→09:31)
[2022-01-24] MEDS: metroNIDAZOLE 500MG/100ML IVPB 100 ML IV SCH ×2 (01:58→09:30)
[2022-01-24 04:30] VITALS: BP 124/79
[2022-01-24] MEDS: ceFAZolin 2 GM IV Premixed 50 ML IV SCH (05:49)
[2022-01-24] MEDS: ONDANSETRON 4 MG/2 ML (SDV) Z0FRAN IVP SCH (05:50)
[2022-01-24] MEDS: METOCLOPRAMIDE INJ 10 MG/2 ML (REGLAN) IVP SCH (05:50)
[2022-01-24 05:57] LABS: HEMATOCRIT 41 % (40-54); MEAN CORPUSCULAR HEMOGLOBIN 27 pg (25-34); MEAN CORPUSCULAR HGB CONC 32 g/dL (32-36); MEAN CORPUSCULAR VOLUME 84 fL (80-99); MEAN PLATELET VOLUME 12.3 fL (9.0-12.2); PLATELET COUNT 120 10^3/uL (130-400); WHITE BLOOD COUNT 8.8 10^3/uL (4.3-11.0)
[2022-01-24 08:52] VITALS: BP 119/71
[2022-01-24] MEDS ORDERED: SENNA W/DOCUSATE (SENOKOT S) TABLET PO SCH (09:00)
[2022-01-24] MEDS ORDERED: PANTOPRAZOLE 40 MG (PROTONIX) VIAL IV SCH (09:00)
[2022-01-24] MEDS ORDERED: PANTOPRAZOLE 40 MG (PROTONIX) TAB PO SCH (09:00)
[2022-01-24] MEDS: LACTATED RINGERS 1,000 ML IV PRN (09:30)
[2022-01-24] MEDS: ENOXAPARIN 40 MG/0.4 ML (LOVENOX) SYR SC SCH (09:31)
--- NOTE | 2022-01-24 10:19 | Progress Note ---
Subjective Date Seen by a Provider: January 24, 2022 Time Seen by a Provider: 10:00 Subjective/Events-last exam doing well. tolerating phase 1 clear liquid diet. ambulating some. pain controlled. Objective Exam Vital Signs Date Time Temp Pulse Resp B/P (MAP) Pulse Ox O2 Delivery O2 Flow Rate FiO2 01/24/22 08:52 36.6 101 18 119/71 (87) 100 Nasal Cannula 2.00 01/24/22 08:26 97 Nasal Cannula 2.00 01/24/22 04:30 37.2 110 18 124/79 (94) 99 Nasal Cannula 2.00 01/24/22 02:05 97 Nasal Cannula 2.00 01/23/22 23:22 36.3 101 18 107/68 (81) 91 Room Air 01/23/22 22:15 98 Nasal Cannula 2.00 01/23/22 21:55 97 Nasal Cannula 2.00 01/23/22 21:00 36.7 101 16 119/73 (88) 97 Nasal Cannula 2.00 01/23/22 19:56 37.2 96 20 125/71 (89) 97 Nasal Cannula 01/23/22 18:56 36.8 97 16 126/77 (93) 96 Nasal Cannula 2.00 01/23/22 18:20 96 Nasal Cannula 2.00 01/23/22 18:02 36.6 91 16 128/79 (95) 96 Nasal Cannula 2.00 01/23/22 18:00 Nasal Cannula 2.00 01/23/22 17:28 36.6 15 126/72 (90) 97 OxyMask 2 01/23/22 17:26 OxyMask 1 01/23/22 17:20 19 121/81 (94) 94 1 01/23/22 17:19 OxyMask 1 01/23/22 17:10 16 125/78 (94) 98 OxyMask 2 01/23/22 17:09 OxyMask 2 01/23/22 17:00 19 127/82 (97) 100 OxyMask 6 01/23/22 16:55 OxyMask 6 01/23/22 16:50 14 121/56 (77) 100 OxyMask 5 01/23/22 16:38 36.6 22 121/62 (81) 99 OxyMask 6 01/23/22 16:38 OxyMask 6 01/23/22 12:42 36.4 64 16 135/79 (97) 95 Room Air I & O 01/24/22 07:00 Intake Total 2150 ml Output Total 900 ml Balance 1250 ml Capillary Refill : Less Than 3 Seconds General Appearance: No Apparent Distress HEENT: PERRL/EOMI Neck: Full Range of Motion Respiratory: Chest Non Tender, Lungs Clear Cardiovascular: Regular Rate, Rhythm Gastrointestinal: normal bowel sounds, soft, tenderness Extremity: Normal Capillary Refill Neurologic/Psychiatric: Alert, Oriented x3 Skin: Normal Color Lymphatic: No Adenopathy Results Lab Laboratory Tests 01/24/22 05:30: White Blood Count 8.8, Red Blood Count 4.90, Hemoglobin 13.0L, Hematocrit 41, Mean Corpuscular Volume 84, Mean Corpuscular Hemoglobin 27, Mean Corpuscular Hemoglobin Concent 32, Red Cell Distribution Width 14.7H, Platelet Count 120L, Mean Platelet Volume 12.3H Assessment/Plan Assessment/Plan Assess & Plan/Chief Complaint s/p lap gastric sleeve resection. increase ambulation. continue phase 1 clear liquid diet for next 2 weeks. may resume all home meds and has new prescriptions at home. JESÚS GUTIERREZ MD January 24, 2022 10:19
[2022-01-24] MEDS ORDERED: METOCLOPRAMIDE INJ 10 MG/2 ML (REGLAN) IVP PRN (12:45)
[2022-01-24] MEDS ORDERED: ONDANSETRON 4 MG/2 ML (SDV) Z0FRAN IVP PRN (12:45)
== END 2022-01-24 12:50 | disposition home or self-care (01) ==
LOC: SDC 12:10 → 4TH 16:47 → SDC 01-24 12:50
PROVIDERS: ATTEND Surgery
DX: E66.01 Morbid (severe) obesity due to excess calories (principal); G47.33 Obstructive sleep apnea (adult) (pediatric); I10 Essential (primary) hypertension; K21.9 Gastro-esophageal reflux disease without esophagitis; F32.A Depression, unspecified; M10.9 Gout, unspecified; Z68.42 Body mass index [BMI] 45.0-49.9, adult; Z79.899 Other long term (current) drug therapy
CPT/HCPCS: 36415; 85027; 87081; 94664; 94760

== ENCOUNTER → 2022-06-11 | Outpatient (CLI) | payer OTHER, MEDICARE, MEDICAID ==
[2022-06-11 10:24] LABS: BASOPHILS % (AUTO) 0 % (0-10); EOSINOPHILS # (AUTO) 0.1 10^3/uL (0.0-0.3); EOSINOPHILS % (AUTO) 1 % (0-10); HEMATOCRIT 45 % (40-54); HEMOGLOBIN 14.9 g/dL (13.3-17.7); LYMPHOCYTES # (AUTO) 1.7 10^3/uL (1.0-4.0); LYMPHOCYTES % (AUTO) 29 % (12-44); MEAN CORPUSCULAR HEMOGLOBIN 28 pg (25-34); MEAN CORPUSCULAR HGB CONC 33 g/dL (32-36); MEAN CORPUSCULAR VOLUME 86 fL (80-99); MONOCYTES # (AUTO) 0.5 10^3/uL (0.0-1.0); MONOCYTES % (AUTO) 8 % (0-12); NEUTROPHILS # (AUTO) 3.7 10^3/uL (1.8-7.8); NEUTROPHILS % (AUTO) 62 % (42-75); PLATELET COUNT 159 10^3/uL (130-400)
[2022-06-11 10:43] LABS: ALBUMIN 4.2 GM/DL (3.2-4.5); BILIRUBIN,TOTAL 0.9 MG/DL (0.1-1.0); CALCIUM 9.5 MG/DL (8.5-10.1); CREATININE SERUM 0.93 MG/DL (0.60-1.30); POTASSIUM 3.9 MMOL/L (3.6-5.0); TOTAL PROTEIN 7.1 GM/DL (6.4-8.2); URIC ACID 7.2 MG/DL (2.6-7.2)
== END ==
LOC: LAB 10:05
PROVIDERS: ATTEND Family Medicine
DX: E55.9 Vitamin D deficiency, unspecified (principal); M10.9 Gout, unspecified; I10 Essential (primary) hypertension; R73.9 Hyperglycemia, unspecified
CPT/HCPCS: 36415; 80053; 82306; 84550; 85025

== ENCOUNTER → 2022-12-09 | Outpatient (CLI) | payer OTHER, MEDICARE, MEDICAID ==
[2022-12-09 08:23] LABS: BASOPHILS % (AUTO) 0 % (0-10); EOSINOPHILS # (AUTO) 0.1 10^3/uL (0.0-0.3); EOSINOPHILS % (AUTO) 2 % (0-10); HEMATOCRIT 47 % (40-54); HEMOGLOBIN 15.8 g/dL (13.3-17.7); LYMPHOCYTES # (AUTO) 1.9 10^3/uL (1.0-4.0); LYMPHOCYTES % (AUTO) 32 % (12-44); MEAN CORPUSCULAR HEMOGLOBIN 28 pg (25-34); MEAN CORPUSCULAR HGB CONC 33 g/dL (32-36); MEAN CORPUSCULAR VOLUME 84 fL (80-99); MEAN PLATELET VOLUME 11.6 fL (9.0-12.2); MONOCYTES # (AUTO) 0.5 10^3/uL (0.0-1.0); MONOCYTES % (AUTO) 8 % (0-12); NEUTROPHILS # (AUTO) 3.4 10^3/uL (1.8-7.8); NEUTROPHILS % (AUTO) 57 % (42-75); PLATELET COUNT 178 10^3/uL (130-400)
[2022-12-09 08:44] LABS: ALBUMIN 4.3 GM/DL (3.2-4.5); BILIRUBIN,TOTAL 0.9 MG/DL (0.1-1.0); CALCIUM 9.5 MG/DL (8.5-10.1); CREATININE SERUM 1.01 MG/DL (0.60-1.30); POTASSIUM 3.6 MMOL/L (3.6-5.0); TOTAL PROTEIN 7.1 GM/DL (6.4-8.2); URIC ACID 8.1 MG/DL (2.6-7.2)
== END ==
LOC: LAB 07:56
PROVIDERS: ATTEND Family Medicine
DX: E78.2 Mixed hyperlipidemia (principal); M10.9 Gout, unspecified; E55.9 Vitamin D deficiency, unspecified; Z98.84 Bariatric surgery status
CPT/HCPCS: 36415; 80053; 80061; 82306; 82607; 84443; 84550; 85025

== ENCOUNTER → 2023-01-28 | Outpatient (RCR) | payer OTHER, MEDICARE, MEDICAID | PROVIDERS: ATTEND Orthopaedic Surgery | DX: M25.511 Pain in right shoulder (principal) ==

== ENCOUNTER 2023-02-18 13:00 | Outpatient (RCR) | payer OTHER, MEDICARE, MEDICAID | END 2023-02-27 | disposition home or self-care (01) | PROVIDERS: ATTEND Orthopaedic Surgery | DX: S46.812D Strain of other muscles, fascia and tendons at shoulder and upper arm level, left arm, subsequent encounter (principal) ==

== ENCOUNTER 2023-03-24 15:01 | Outpatient (RCR) | payer OTHER, MEDICARE, MEDICAID | END 2023-03-30 | disposition home or self-care (01) | PROVIDERS: ATTEND Orthopaedic Surgery | DX: S46.811D Strain of other muscles, fascia and tendons at shoulder and upper arm level, right arm, subsequent encounter (principal); X58.XXXD Exposure to other specified factors, subsequent encounter ==

== ENCOUNTER 2023-04-21 11:16 | Outpatient (RCR) | payer OTHER, MEDICARE, MEDICAID | END 2023-04-30 | disposition home or self-care (01) | PROVIDERS: ATTEND Orthopaedic Surgery | DX: S46.811D Strain of other muscles, fascia and tendons at shoulder and upper arm level, right arm, subsequent encounter (principal); X58.XXXD Exposure to other specified factors, subsequent encounter ==